=== PATIENT | male | born 1965 | race African-American/Black ===

== ENCOUNTER 2017-04-02 02:59 | Emergency (ER) | payer OTHER ==
[~2017-04-02] VITALS: Ht 180.3 cm; Wt 59.0 kg
[2017-04-02 03:28] VITALS: BP 125/90
[2017-04-02] MEDS ORDERED: IBUP-1007 PO (03:51)
[2017-04-02] MEDS ORDERED: SULF1TAB24 PO (03:51)
--- NOTE | 2017-04-02 03:51 | PHYS DOC ---
Past Medical History Past Medical History: No Pertinent History Past Surgical History: Other Additional Past Surgical Histo: R hand surgery Alcohol Use: Rarely Drug Use: None Adult General Chief Complaint Chief Complaint: ABSCESS HPI HPI Patient is a 51 year old [f__sex] who presents with [] Review of Systems Review of Systems Constitutional: Denies fever or chills [] Eyes: Denies change in visual acuity, redness, or eye pain [] HENT: Denies nasal congestion or sore throat [] Respiratory: Denies cough or shortness of breath [] Cardiovascular: No additional information not addressed in HPI [] GI: Denies abdominal pain, nausea, vomiting, bloody stools or diarrhea [] : Denies dysuria or hematuria [] Musculoskeletal: Denies back pain or joint pain [] Integument: Denies rash or skin lesions [] Neurologic: Denies headache, focal weakness or sensory changes [] Endocrine: Denies polyuria or polydipsia [] Allergies Allergies Allergies Coded Allergies Type Severity Reaction Last Updated Verified No Known Drug Allergies 09/13/14 No Physical Exam Physical Exam Constitutional: Well developed, well nourished, no acute distress, non-toxic appearance. [] HENT: Normocephalic, atraumatic, bilateral external ears normal, oropharynx moist, no oral exudates, nose normal. [] Eyes: PERRLA, EOMI, conjunctiva normal, no discharge. [] Neck: Normal range of motion, no tenderness, supple, no stridor. [] Cardiovascular:Heart rate regular rhythm, no murmur [] Lungs & Thorax: Bilateral breath sounds clear to auscultation [] Abdomen: Bowel sounds normal, soft, no tenderness, no masses, no pulsatile masses. [] Skin: Warm, dry, no erythema, no rash. [] Back: No tenderness, no CVA tenderness. [] Extremities: No tenderness, no cyanosis, no clubbing, ROM intact, no edema. [] Neurologic: Alert and oriented X 3, normal motor function, normal sensory function, no focal deficits noted. [] Psychologic: Affect normal, judgement normal, mood normal. [] EKG EKG [] Radiology/Procedures Radiology/Procedures [] Course & Med Decision Making Course & Med Decision Making Pertinent Labs and Imaging studies reviewed. (See chart for details) [] Dragon Disclaimer Dragon Disclaimer This electronic medical record was generated, in whole or in part, using a voice recognition dictation system. Departure Departure Impression: Primary Impression: Folliculitis Disposition: 01 HOME, SELF-CARE Condition: IMPROVED Referrals: HECTOR GARCIA (PCP) Patient Instructions: Folliculitis Scripts Ibuprofen (IBUPROFEN) 600 Mg Tablet 600 MG PO PRN Q6HRS Y for PAIN, #20 TAB Prov: MANNY EVANGELISTA MD 04/02/17 Sulfamethoxazole/Trimethoprim (BACTRIM DS TABLET) 1 Each Tablet 2 TAB PO BID for 10 Days, TAB Prov: MANNY EVANGELISTA MD 04/02/17 MANNY EVANGELISTA MD Apr 02, 2017 03:51
[2017-04-02] MEDS ORDERED: IBUPROFEN 600 MG TABLET. PO ONE (04:00)
[2017-04-02] MEDS ORDERED: SMZ/TMP 800/160MG TABLET. PO ONE (04:00)
== END 2017-04-02 04:05 | disposition home or self-care (01) ==
LOC: ER 02:59
DX: L73.9 Follicular disorder, unspecified (principal)
CPT/HCPCS: 99283

== ENCOUNTER → 2019-04-12 | Outpatient (CLI) | payer OTHER ==
[2017-04-13 21:00] VITALS: BP 104/63
[~2019-04-12] MED LIST: IBUP-1007 PO; SULF1TAB24 PO
--- NOTE | 2019-04-12 12:36 | RAD ---
PROCEDURE: CHEST PA LATERAL CLINICAL INDICATION: Weight loss. Smoker. COMPARISON: None FINDINGS: No pneumothorax identified. Cardiac and mediastinal contours unremarkable. No pulmonary consolidation or acute airspace disease. No acute osseous abnormalities identified. IMPRESSION: No pulmonary consolidation or acute airspace disease. Electronically signed by: Dalton Mccoy DO (04/12/2019 12:33 PM) [facility]
== END | disposition home or self-care (01) ==
LOC: RAD 12:05
PROVIDERS: ATTEND Internal Medicine Gastroenterology
DX: R63.4 Abnormal weight loss (principal); F17.200 Nicotine dependence, unspecified, uncomplicated
CPT/HCPCS: 71046

== ENCOUNTER → 2019-05-18 | Day surgery (SDC) | payer OTHER ==
[~2019-05-18] MED LIST changes: +IV RINGERS,LACTATED 1000ML 1,000 ML IV SCH; +LIDOCAINE 2% PF 5 ML VIAL. ONE; +PROPOFOL 60 ML IV ONE
[2019-05-18 14:50] VITALS: BP 118/65
--- NOTE | 2019-05-22 15:07 | PATHOLOGY ---
[facility] Accession Number: [id number] . 01 Material submitted: . PART A: colon - SIGMOID POLYPECTOMY. Modifiers: sigmoid PART B: colon - TRANVERSE COLON POLYPECTOMY. Modifiers: transverse . 01 Clinical history: . Pre-OP DX: Weight loss/screening/reflux Post-OP DX: Non-erosive gastritis/pending . 02 Diagnosis: A. Colonic mucosa, sigmoid colon polypectomy: - Hyperplastic polyp with coagulation artifact. . B. Colonic mucosa, transverse colon polypectomy: - Hyperplastic polyp with coagulation artifact. . (JPM:meteorological aide; 05/22/2019) MBR 05/22/2019 1032 Local . 02 Comment: There are no adenomatous changes or evidence of malignancy. (JPM:meteorological aide; 05/22/2019) . 02 Electronically signed: . Jw Urena MD, Pathologist NPI- [id number] . 01 Gross description: . A. Received in formalin labeled "Ruff, Arpree, sigmoid polypectomy," are multiple segments of hardy soft tissue measuring 1.1 x 0.3 x 0.1 cm in aggregate dimensions. The specimen is filtered and entirely submitted in cassette A1. . B. Received in formalin labeled "Ruff, Arpree, transverse colon polyp," and additionally labeled on the requisition as "polypectomy," are multiple segments of hardy soft tissue admixed with vegetative material measuring 0.5 x 0.3 x 0.1 cm in aggregate dimensions. The specimen is filtered and entirely submitted in cassette B1. (TSD; 05/19/2019) TOB/TOB 05/19/2019 1729 Local . 02 Pathologist provided ICD-10: K63.5 . 02 CPT . 115079, 905112 Specimen Comment: A courtesy copy of this report has been sent to Specimen Comment: [phone], , . Specimen Comment: Report sent to ,DR GARCIA / DR TAVAREZ Performed at: 01 [facility] [address], [place] [id number] MD Ever Washburn MD Phone: [phone] Performed at: 02 [facility] [address] [place], [place] [id number] MD Jw Urena MD Phone: [phone]
== END ==
LOC: ENDOS 11:55
PROVIDERS: ATTEND Internal Medicine Gastroenterology
DX: K63.5 Polyp of colon (principal); K29.50 Unspecified chronic gastritis without bleeding; K57.30 Diverticulosis of large intestine without perforation or abscess without bleeding; K64.0 First degree hemorrhoids; F15.90 Other stimulant use, unspecified, uncomplicated; Z72.89 Other problems related to lifestyle
CPT/HCPCS: 43235; 45385; 88305; J2001; J2704

== ENCOUNTER 2019-06-19 16:44 | Emergency (ER) | payer OTHER ==
[~2019-06-19] VITALS: Ht 180.3 cm; Wt 59.9 kg
[~2019-06-19 16:44] MED LIST changes: -IV RINGERS,LACTATED 1000ML 1,000 ML IV SCH; -LIDOCAINE 2% PF 5 ML VIAL. ONE; -PROPOFOL 60 ML IV ONE
[2019-06-19 17:25] VITALS: BP 150/79
[2019-06-19 17:51] LABS: BILIRUBIN,URINE NEGATIVE (NEG); CLARITY,URINE CLOUDY; COLOR,URINE YELLOW; NITRITE,URINE NEGATIVE (NEG); PH,URINE 6.5; PROTEIN,URINE NEGATIVE (NEG-TRACE); UROBILINOGEN,URINE 0.2 mg/dL (0.2 mg/dL)
[2019-06-19 17:56] LABS: SQUAMOUS EPITHELIAL CELL,UR FEW /LPF
[2019-06-19 17:57] LABS: AMORPHOUS SEDIMENT,UR PRESENT /HPF; BACTERIA,URINE 0 /HPF (0-FEW); RBC,URINE 0 /HPF (0-2)
[2019-06-19] MEDS ORDERED: FLUT9.9S NS (18:05)
--- NOTE | 2019-06-19 18:05 | PHYS DOC ---
Past Medical History Past Medical History: No Pertinent History Past Surgical History: No Surgical History Additional Past Surgical Histo: R hand surgery Alcohol Use: Occasionally Drug Use: None Adult General Chief Complaint Chief Complaint: EARACHE/EAR PAIN HPI HPI Patient is a 53 year old AA male, who presents to the emergency department with complaints of left ear pain for the last for 5 days. He denies any bleeding from the air he reports some decreased hearing and some yellow discolored drainage from the ear a few days ago. Patient denies any injury. He also reports increased urinary frequency, he denies any irregular penile discharge, abdominal pain, low back pain, hematuria, or incontinence. She denies any fever, sore throat, cough, nasal congestion, nausea, vomiting, or diarrhea. He currently rates pain a 5 out of 10 on the pain scale. He denies any alleviating or exacerbating factors. Review of Systems Review of Systems Constitutional: Denies fever or chills [] Eyes: Denies redness, or eye pain [] HENT: Denies nasal congestion or sore throat; see history of present illness [] Respiratory: Denies cough or shortness of breath [] Cardiovascular: No additional information not addressed in HPI [] GI: Denies abdominal pain, nausea, vomiting, or diarrhea [] : Denies dysuria or hematuria; see history of present illness Musculoskeletal: Denies back pain or joint pain [] Integument: Denies rash or skin lesions [] Neurologic: Denies headache Complete systems were reviewed and found to be within normal limits, except as documented in this note. Allergies Allergies Allergies Coded Allergies Type Severity Reaction Last Updated Verified No Known Drug Allergies 05/18/19 No Physical Exam Physical Exam Constitutional: Well developed, well nourished, no acute distress, non-toxic appearance. [] HENT: Normocephalic, atraumatic, bilateral external ears normal, bilateral TMs normal, oropharynx moist, cobblestone appearance of posterior pharynx, no oral exudates, nasal turbinates are edematous and erythematous bilaterally Eyes: PERRLA, EOMI, conjunctiva normal, no discharge. [] Neck: Normal range of motion, no tenderness, supple, no stridor. [] Cardiovascular:Heart rate regular rhythm, no murmur [] Lungs & Thorax: Bilateral breath sounds clear to auscultation [] Abdomen: Bowel sounds normal, soft, no tenderness, no masses, no pulsatile billy s. [] Skin: Warm, dry, no erythema, no rash. [] Back: No CVA tenderness. [] Extremities: No cyanosis, ROM intact, no edema. [] Neurologic: Alert and oriented X 3, no focal deficits noted. [] Psychologic: Affect normal, judgement normal, mood normal. [] Current Patient Data Vital Signs Vital Signs Date Time Temp Pulse Resp B/P (MAP) Pulse Ox O2 Delivery O2 Flow Rate FiO2 06/19/19 17:25 98.7 78 18 150/79 (102) 97 Room Air 98.7 Lab Values Laboratory Tests Test 06/19/19 17:40 Urine Collection Type Unknown Urine Color Yellow Urine Clarity Cloudy Urine pH 6.5 Urine Specific [place] 1.015 Urine Protein Negative mg/dL (NEG-TRACE) Urine Glucose (UA) Negative mg/dL (NEG) Urine Ketones (Stick) Negative mg/dL (NEG) Urine Blood Negative (NEG) Urine Nitrite Negative (NEG) Urine Bilirubin Negative (NEG) Urine Urobilinogen Dipstick 0.2 mg/dL (0.2 mg/dL) Urine Leukocyte Esterase Trace (NEG) Urine RBC 0 /HPF (0-2) Urine WBC 1-4 /HPF (0-4) Urine Squamous Epithelial Cells Few /LPF Urine Amorphous Sediment Present /HPF Urine Bacteria 0 /HPF (0-FEW) EKG EKG [] Radiology/Procedures Radiology/Procedures [] Course & Med Decision Making Course & Med Decision Making Pertinent Labs and Imaging studies reviewed. (See chart for details) [] Dragon Disclaimer Dragon Disclaimer This electronic medical record was generated, in whole or in part, using a voice recognition dictation system. Departure Departure Impression: Primary Impression: Left ear pain Additional Impression: Allergic rhinitis Disposition: HOME, SELF-CARE Condition: STABLE Referrals: ALBERT TAVAREZ MD (PCP) Patient Instructions: Allergic Rhinitis, Otalgia-Brief Additional Instructions: Fill the prescription(s) and use as directed. You may take Tylenol or ibuprofen as needed for pain/fever. Increase clear fluids. Avoid triggers such as smoke, fragrance, dust, and pollen. Follow-up with your primary care doctor if symptoms persist, return to the ER if symptoms worsen. Scripts Fluticasone Propionate (Flonase Allergy Relief) 9.9 Ml [place].susp 2 SPRAYS NS DAILY for 30 Days, #1 BOTTLE 0 Refills Prov: SILVIA GOLD CARTOGRAPHIC ENGINEER 06/19/19 Problem Qualifiers Additional Impression: Allergic rhinitis Allergic rhinitis trigger: unspecified Allergic rhinitis seasonality: non- seasonal Qualified Codes: J30.89 - Other allergic rhinitis SILVIA GOLD CARTOGRAPHIC ENGINEER Jun 19, 2019 18:05
== END 2019-06-19 18:20 | disposition home or self-care (01) ==
LOC: ER 16:44
DX: H92.02 Otalgia, left ear (principal); J30.89 Other allergic rhinitis
CPT/HCPCS: 81001; 87086; 99284

== ENCOUNTER → 2019-07-31 | Outpatient (CLI) | payer OTHER ==
[~2019-07-31] MED LIST changes: +FLUT9.9S NS; +IOHEXOL 240 MG/ML 50ML VIAL. IV ONE; +IOHEXOL 300 MG/ML 100ML VIAL. IV ONE
--- NOTE | 2019-07-31 15:08 | RAD ---
Examination: CT ABD PELV W/ORAL IV CONTRAST History: Weight loss, abdominal pain Comparison/Correlation: None Findings: Axial images of the abdomen and pelvis were obtained following IV and oral contrast. Sagittal and coronal reformatted images were provided. There is a 0.27 cm diameter nodule seen on image 1 of series 2 at the posterior right pleura. It may have free flowing fluid for purposes of this exam. Liver, pancreas, adrenal glands, spleen, and gallbladder fossa are unremarkable. Kidneys are unremarkable. Limited mesenteric fat is noted. No bowel obstruction or inflammatory findings. Appendix appears to be present and unremarkable with retrocecal course. No enlarged abdominal or pelvic lymph nodes. Urinary bladder is unremarkable. L5-S1 disc space narrowing with vacuum phenomenon and concentric disc bulge is present. No abdominal aortic aneurysm. Atherosclerotic calcification involving the abdominal aorta and iliac arteries noted consistent with age. Impression: No mass or enlarged lymph nodes. No inflammatory processes. Nodule at the right posterior lung base is resolving size but noncalcified and have a fully included on this exam. Correlate with risk factors in determining interval follow up further evaluation with CT chest with contrast to further characterize and assess stability. PQRS Compliance Statement: One or more of the following individualized dose reduction techniques were utilized for this examination: 1. Automated exposure control 2. Adjustment of the mA and/or kV according to patient size 3. Use of iterative reconstruction technique Electronically signed by: Bryce Kraus MD (07/31/2019 3:05 PM) [facility]
== END | disposition home or self-care (01) ==
LOC: CT 12:50
PROVIDERS: ATTEND Internal Medicine Gastroenterology
DX: R91.1 Solitary pulmonary nodule (principal); I70.8 Atherosclerosis of other arteries; M51.26 Other intervertebral disc displacement, lumbar region; M48.07 Spinal stenosis, lumbosacral region
CPT/HCPCS: 74177; Q9966; Q9967

== ENCOUNTER 2019-11-02 20:24 | Emergency (ER) | payer OTHER ==
[~2019-11-02] VITALS: Ht 180.3 cm; Wt 59.0 kg
[~2019-11-02 20:24] MED LIST changes: -IOHEXOL 240 MG/ML 50ML VIAL. IV ONE; -IOHEXOL 300 MG/ML 100ML VIAL. IV ONE
[2019-11-02 21:10] VITALS: BP 121/68
--- NOTE | 2019-11-02 21:38 | PHYS DOC ---
Past Medical History Past Medical History: No Pertinent History (ALBERT MANNING APRN) Past Surgical History: No Surgical History Additional Past Surgical Histo: R hand surgery (ALBERT MANNING APRN) Smoking Status: Current Every Day Smoker Alcohol Use: Occasionally Drug Use: None (ALBERT MANNING APRN) Attending Signature I have participated in the care of this patient and I have reviewed and agree with all pertinent clinical information above including history, exam, and recommendations. (ESTRELLA FERNANDEZ MD) Adult General Chief Complaint Chief Complaint: MUSCLE SPASM/CRAMP HPI HPI Patient is a 54 year old male who presents with muscle cramps that intermittently beginning last 2 weeks. The patient states over that period of time he is not been eating or drinking very much because his food tastes weird and he takes an acid taste in his mouth. He says that he is lost 30 pounds over the last several weeks. Denies any additional symptoms. Complete ROS were reviewed and found to be within normal limits, except as documented in the HPI (ALBERT MANNING APRN) Current Medications Current Medications Current Medications Medications (Trade) Dose Ordered Sig/Frida Start Time Stop Time Status Last Admin Dose Admin Sodium Chloride 1,000 ml @ 1,000 mls/hr 1X ONCE 11/02/19 22:00 11/02/19 22:49 DC 11/02/19 21:42 1,000 MLS/HR (ESTRELLA FERNANDEZ MD) Allergies Allergies Allergies Coded Allergies Type Severity Reaction Last Updated Verified No Known Drug Allergies 05/18/19 No (ESTRELLA FERNANDEZ MD) Physical Exam Physical Exam Constitutional: Well developed, well nourished, no acute distress, non-toxic appearance. [] HENT: Normocephalic, atraumatic, bilateral external ears normal, oropharynx moist, no oral exudates, nose normal. [] Eyes: PERRLA, EOMI, conjunctiva normal, no discharge. [] Neck: Normal range of motion, no tenderness, supple, no stridor. [] Cardiovascular:Heart rate regular rhythm, no murmur [] Lungs & Thorax: Bilateral breath sounds clear to auscultation [] Abdomen: Bowel sounds normal, soft, no tenderness, no masses, no pulsatile masses. [] Neurologic: Alert and oriented X 3, normal motor function, normal sensory function, no focal deficits noted. [] Psychologic: Affect normal, judgement normal, mood normal. [] (ALBERT MANNING APRN) Current Patient Data Vital Signs Vital Signs Date Time Temp Pulse Resp B/P (MAP) Pulse Ox O2 Delivery O2 Flow Rate FiO2 11/02/19 21:10 98.3 87 18 121/68 (85) 99 Room Air 98.3 (ESTRELLA FERNANDEZ MD) Lab Values Laboratory Tests Test 11/02/19 21:37 White Blood Count 5.6 x10^3/uL (4.0-11.0) Red Blood Count 3.96 x10^6/uL (4.30-5.70) L Hemoglobin 13.1 g/dL (13.0-17.5) Hematocrit 38.4 % (39.0-53.0) L Mean Corpuscular Volume 97 fL (79-100) Mean Corpuscular Hemoglobin 33 pg (25-35) Mean Corpuscular Hemoglobin Concent 34 g/dL (31-37) Red Cell Distribution Width 13.2 % (11.5-14.5) Platelet Count 162 x10^3/uL (140-400) Neutrophils (%) (Auto) 44 % (31-73) Lymphocytes (%) (Auto) 44 % (24-48) Monocytes (%) (Auto) 9 % (0-9) Eosinophils (%) (Auto) 2 % (0-3) Basophils (%) (Auto) 1 % (0-3) Neutrophils # (Auto) 2.5 x10^3/uL (1.8-7.7) Lymphocytes # (Auto) 2.5 x10^3/uL (1.0-4.8) Monocytes # (Auto) 0.5 x10^3/uL (0.0-1.1) Eosinophils # (Auto) 0.1 x10^3/uL (0.0-0.7) Basophils # (Auto) 0.1 x10^3/uL (0.0-0.2) Sodium Level 140 mmol/L (136-145) Potassium Level 4.0 mmol/L (3.5-5.1) Chloride Level 105 mmol/L (98-107) Carbon Dioxide Level 30 mmol/L (21-32) Anion Gap 5 (6-14) L Blood Urea Nitrogen 13 mg/dL (8-26) Creatinine 0.9 mg/dL (0.7-1.3) Estimated GFR (Cockcroft-Gault) 106.8 BUN/Creatinine Ratio 14 (6-20) Glucose Level 91 mg/dL (70-99) Calcium Level 8.8 mg/dL (8.5-10.1) Magnesium Level 1.7 mg/dL (1.8-2.4) L Total Bilirubin 0.2 mg/dL (0.2-1.0) Aspartate Amino Transferase (AST) 24 U/L (15-37) Alanine Aminotransferase (ALT) 21 U/L (16-63) Alkaline Phosphatase 81 U/L (46-116) Total Protein 6.4 g/dL (6.4-8.2) Albumin 3.4 g/dL (3.4-5.0) Albumin/Globulin Ratio 1.1 (1.0-1.7) Lipase 216 U/L (73-393) Laboratory Tests 11/02/19 21:37 Laboratory Tests 11/02/19 21:37 (ESTRELLA FERNANDEZ MD) Lab Values Laboratory Tests Test 11/02/19 21:37 White Blood Count 5.6 x10^3/uL (4.0-11.0) Red Blood Count 3.96 x10^6/uL (4.30-5.70) L Hemoglobin 13.1 g/dL (13.0-17.5) Hematocrit 38.4 % (39.0-53.0) L Mean Corpuscular Volume 97 fL (79-100) Mean Corpuscular Hemoglobin 33 pg (25-35) Mean Corpuscular Hemoglobin Concent 34 g/dL (31-37) Red Cell Distribution Width 13.2 % (11.5-14.5) Platelet Count 162 x10^3/uL (140-400) Neutrophils (%) (Auto) 44 % (31-73) Lymphocytes (%) (Auto) 44 % (24-48) Monocytes (%) (Auto) 9 % (0-9) Eosinophils (%) (Auto) 2 % (0-3) Basophils (%) (Auto) 1 % (0-3) Neutrophils # (Auto) 2.5 x10^3/uL (1.8-7.7) Lymphocytes # (Auto) 2.5 x10^3/uL (1.0-4.8) Monocytes # (Auto) 0.5 x10^3/uL (0.0-1.1) Eosinophils # (Auto) 0.1 x10^3/uL (0.0-0.7) Basophils # (Auto) 0.1 x10^3/uL (0.0-0.2) Sodium Level 140 mmol/L (136-145) Potassium Level 4.0 mmol/L (3.5-5.1) Chloride Level 105 mmol/L (98-107) Carbon Dioxide Level 30 mmol/L (21-32) Anion Gap 5 (6-14) L Blood Urea Nitrogen 13 mg/dL (8-26) Creatinine 0.9 mg/dL (0.7-1.3) Estimated GFR (Cockcroft-Gault) 106.8 BUN/Creatinine Ratio 14 (6-20) Glucose Level 91 mg/dL (70-99) Calcium Level 8.8 mg/dL (8.5-10.1) Magnesium Level 1.7 mg/dL (1.8-2.4) L Total Bilirubin 0.2 mg/dL (0.2-1.0) Aspartate Amino Transferase (AST) 24 U/L (15-37) Alanine Aminotransferase (ALT) 21 U/L (16-63) Alkaline Phosphatase 81 U/L (46-116) Total Protein 6.4 g/dL (6.4-8.2) Albumin 3.4 g/dL (3.4-5.0) Albumin/Globulin Ratio 1.1 (1.0-1.7) Lipase 216 U/L (73-393) Laboratory Tests 11/02/19 21:37 Laboratory Tests 11/02/19 21:37 (ALBERT MANNING APRN) EKG EKG [] (ALBERT MANNING APRN) Radiology/Procedures Radiology/Procedures [] (ALBERT MANNING APRN) Course & Med Decision Making Course & Med Decision Making Pertinent Labs and Imaging studies reviewed. (See chart for details) We will check labs, and give fluids. Labs are unremarkable. Will g give prescription for muscle relaxers, and will give prescription for Protonix as he has been having an acid taste in the back of his mouth. We will have him follow-up with his primary care doctor. (ALBERT MANNING APRN) Dragon Disclaimer Dragon Disclaimer This electronic medical record was generated, in whole or in part, using a voice recognition dictation system. (ALBERT MANNING APRN) Departure Departure Impression: Primary Impression: GERD (gastroesophageal reflux disease) Additional Impression: Muscle cramping Disposition: 01 HOME, SELF-CARE Condition: STABLE Referrals: ALBERT TAVAREZ MD (PCP) Patient Instructions: Diet for Gastroesophageal Reflux Disease, Adult, Muscle Cramps Additional Instructions: Thank you for visiting [facility]. We appreciate you trusting us with your care. If any additional problems come up don't hesitate to return to visit us. Please follow up with your primary care provider so they can plan additional care if needed and know about the problem that you had. If symptoms worsen come back to the Emergency Department. Any concerning symptoms that start such as chest pain, shortness of air, weakness or numbness on one side of the body, running high fevers or any other concerning symptoms return to the ER. Please fill your medications at any pharmacy and follow the prescription instructions. Scripts Orphenadrine Citrate (ORPHENADRINE CITRATE) 100 Mg Tablet.er 100 MG PO BID PRN for MUSCLE SPASMS for 5 Days, #10 TAB.SR Prov: ALBERT MANNING APRN 11/02/19 Pantoprazole Sodium (PROTONIX ) 40 Mg Tablet.dr 40 MG PO DAILYAC for GERD for 30 Days, #30 TAB Prov: ALBERT MANNING APRN 11/02/19 Problem Qualifiers Primary Impression: GERD (gastroesophageal reflux disease) Esophagitis presence: esophagitis presence not specified Qualified Codes: K21.9 - Gastro-esophageal reflux disease without esophagitis ALBERT MANNING APRN Nov 02, 2019 21:38 ESTRELLA FERNANDEZ MD Nov 03, 2019 03:09
[2019-11-02 21:44] LABS: BASO # 0.1 x10^3/uL (0.0-0.2); BASO % 1 % (0-3); EOS # 0.1 x10^3/uL (0.0-0.7); EOS % 2 % (0-3); HEMATOCRIT 38.4 % (39.0-53.0); HEMOGLOBIN 13.1 g/dL (13.0-17.5); LYMPH # 2.5 x10^3/uL (1.0-4.8); LYMPH % 44 % (24-48); MEAN CORPUSCULAR HEMOGLOBIN 33 pg (25-35); MEAN CORPUSCULAR HGB CONC 34 g/dL (31-37); MEAN CORPUSCULAR VOLUME 97 fL (79-100); MONO # 0.5 x10^3/uL (0.0-1.1); MONO % 9 % (0-9); NEUT # 2.5 x10^3/uL (1.8-7.7); NEUT % 44 % (31-73); PLATELET COUNT 162 x10^3/uL (140-400); RED BLOOD COUNT 3.96 x10^6/uL (4.30-5.70); RED CELL DISTRIBUTION WIDTH 13.2 % (11.5-14.5); WHITE BLOOD COUNT 5.6 x10^3/uL (4.0-11.0)
[2019-11-02 21:51] LABS: CALCIUM 8.8 mg/dL (8.5-10.1); CREATININE 0.9 mg/dL (0.7-1.3); GFR 106.8
[2019-11-02 21:57] LABS: ALBUMIN 3.4 g/dL (3.4-5.0); ALBUMIN/GLOBULIN RATIO 1.1 (1.0-1.7); MAGNESIUM 1.7 mg/dL (1.8-2.4); TOTAL BILIRUBIN 0.2 mg/dL (0.2-1.0); TOTAL PROTEIN 6.4 g/dL (6.4-8.2)
[2019-11-02] MEDS ORDERED: IV NORMAL SALINE 1000ML BAG 1,000 ML IV ONE (22:00)
[2019-11-02] MEDS ORDERED: ORPH100T PO (22:25)
[2019-11-02] MEDS ORDERED: PANT40TA77 PO (22:25)
== END 2019-11-02 22:45 | disposition home or self-care (01) ==
LOC: ER 20:24
DX: K21.9 Gastro-esophageal reflux disease without esophagitis (principal); R25.2 Cramp and spasm; F17.200 Nicotine dependence, unspecified, uncomplicated
CPT/HCPCS: 36415; 80053; 83690; 83735; 85025; 99283; J7030

== ENCOUNTER 2020-04-07 19:13 | Emergency (ER) | payer OTHER ==
[~2020-04-07] VITALS: Ht 180.3 cm; Wt 54.0 kg
[~2020-04-07 19:13] MED LIST changes: +ORPH100T PO; +PANT40TA77 PO
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
[2020-04-07 20:13] LABS: BASO % 1 % (0-3); EOS # 0.1 x10^3/uL (0.0-0.7); EOS % 1 % (0-3); HEMOGLOBIN 11.5 g/dL (13.0-17.5); LYMPH # 2.1 x10^3/uL (1.0-4.8); LYMPH % 29 % (24-48); MEAN CORPUSCULAR HEMOGLOBIN 33 pg (25-35); MEAN CORPUSCULAR HGB CONC 35 g/dL (31-37); MEAN CORPUSCULAR VOLUME 94 fL (79-100); MONO # 0.6 x10^3/uL (0.0-1.1); MONO % 8 % (0-9); NEUT # 4.3 x10^3/uL (1.8-7.7); NEUT % 61 % (31-73); PLATELET COUNT 239 x10^3/uL (140-400); RED CELL DISTRIBUTION WIDTH 12.7 % (11.5-14.5); WHITE BLOOD COUNT 7.1 x10^3/uL (4.0-11.0)
[2020-04-07] MEDS ORDERED: IV NORMAL SALINE 500ML BAG 500 ML IV ONE (20:15)
[2020-04-07] MEDS ORDERED: DEXAMETHASONE SOD PHOS 20 MG/5 ML VIAL. IVP ONE (20:15)
[2020-04-07] MEDS ORDERED: KETOROLAC 30 MG/ML VIAL. IVP ONE (20:15)
[2020-04-07] MEDS ORDERED: METOCLOPRAMIDE HCL 10 MG/2 ML VIAL. IVP ONE (20:15)
[2020-04-07] MEDS ORDERED: diphenhydrAMINE 50 MG/ML VIAL IVP ONE (20:15)
[2020-04-07] MEDS ORDERED: MAGNESIUM SULFATE 1GM 100 ML IV ONE (20:15)
[2020-04-07 20:23] LABS: CREATININE 0.7 mg/dL (0.7-1.3); GFR 142.7; POTASSIUM 4.3 mmol/L (3.5-5.1)
[2020-04-07 20:29] LABS: ALBUMIN 3.3 g/dL (3.4-5.0); TOTAL BILIRUBIN 0.2 mg/dL (0.2-1.0); TOTAL PROTEIN 6.5 g/dL (6.4-8.2)
[2020-04-07 20:36] LABS: PROTHROMBIN TIME PATIENT 13.8 SEC (11.7-14.0)
[2020-04-07] MEDS ORDERED: POLY119P4 PO (21:44)
[2020-04-07] MEDS ORDERED: HYDR25SU18 RC (21:44)
[2020-04-07 21:47] LABS: BILIRUBIN,URINE NEGATIVE (NEG); CLARITY,URINE CLEAR; COLOR,URINE YELLOW; NITRITE,URINE NEGATIVE (NEG); PH,URINE 6.5 (<5.0-8.0); PROTEIN,URINE NEGATIVE (NEG-TRACE); UROBILINOGEN,URINE 0.2 mg/dL (0.2 mg/dL)
[2020-04-07 21:53] LABS: BACTERIA,URINE 0 /HPF (0-FEW); RBC,URINE 0 /HPF (0-2); SQUAMOUS EPITHELIAL CELL,UR OCC /LPF; WBC,URINE OCC /HPF (0-4)
[2020-04-07 22:10] VITALS: BP 101/63
--- NOTE | 2020-04-09 08:38 | EKG ---
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
== END 2020-04-07 22:14 | disposition home or self-care (01) ==
LOC: ER 19:13
DX: K64.9 Unspecified hemorrhoids (principal); K59.01 Slow transit constipation; G43.119 Migraine with aura, intractable, without status migrainosus; R07.89 Other chest pain; F17.200 Nicotine dependence, unspecified, uncomplicated; Z98.890 Other specified postprocedural states
CPT/HCPCS: 36415; 80053; 81001; 84484; 85025; 85610; 85730; 86850; 86900; 86901; 87086; 93005; 96365; 96375; 99285; J1100; J1200; J1885; J2765; J3475; J7040

== ENCOUNTER 2020-05-30 21:17 | Emergency (ER) | payer OTHER ==
[~2020-05-30] VITALS: Ht 177.8 cm; Wt 61.3 kg
[~2020-05-30 21:17] MED LIST changes: +HYDR25SU18 RC; +POLY119P4 PO
[2020-05-30 21:47] LABS: BASO # 0.1 x10^3/uL (0.0-0.2); BASO % 1 % (0-3); EOS # 0.1 x10^3/uL (0.0-0.7); EOS % 1 % (0-3); HEMATOCRIT 31.9 % (39.0-53.0); HEMOGLOBIN 10.8 g/dL (13.0-17.5); LYMPH # 1.7 x10^3/uL (1.0-4.8); LYMPH % 23 % (24-48); MEAN CORPUSCULAR HEMOGLOBIN 31 pg (25-35); MEAN CORPUSCULAR HGB CONC 34 g/dL (31-37); MEAN CORPUSCULAR VOLUME 92 fL (79-100); MONO # 1.1 x10^3/uL (0.0-1.1); MONO % 15 % (0-9); NEUT # 4.5 x10^3/uL (1.8-7.7); NEUT % 61 % (31-73); PLATELET COUNT 366 x10^3/uL (140-400); RED BLOOD COUNT 3.48 x10^6/uL (4.30-5.70); RED CELL DISTRIBUTION WIDTH 13.1 % (11.5-14.5); WHITE BLOOD COUNT 7.5 x10^3/uL (4.0-11.0)
--- NOTE | 2020-05-30 22:00 | RAD ---
Exam: Chest one view INDICATION: Chest pain TECHNIQUE: Frontal view of the chest Comparisons: 04/12/2019 FINDINGS: The cardiomediastinal silhouette and pulmonary vessels are within normal limits. The lung and pleural spaces are clear. IMPRESSION: No acute cardiopulmonary process. Electronically signed by: Diogenes Calhoun MD (05/30/2020 9:58 PM) DENG
[2020-05-30 22:05] LABS: CALCIUM 8.7 mg/dL (8.5-10.1); CREATININE 0.7 mg/dL (0.7-1.3); GFR 142.7; POTASSIUM 4.6 mmol/L (3.5-5.1)
[2020-05-30 22:11] LABS: ALBUMIN 2.9 g/dL (3.4-5.0); ALBUMIN/GLOBULIN RATIO 0.7 (1.0-1.7); TOTAL BILIRUBIN 0.8 mg/dL (0.2-1.0); TOTAL PROTEIN 7.3 g/dL (6.4-8.2)
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
[2020-05-30] MEDS ORDERED: CONTRAST GIVEN. MC PRN (23:15)
[2020-05-30] MEDS ORDERED: IOHEXOL 350 MG/ML 100 ML VIAL. IV ONE (23:30)
--- NOTE | 2020-05-30 23:52 | RAD ---
CT head without contrast PQRS statement: CT scans at this facility use dose reduction including either automated exposure control, iterative reconstructions, and /or weight based radiation dosing via mA and kV modification when appropriate to reduce radiation dose to as low as reasonably achievable. HISTORY: Headache. FINDINGS: No intracranial hemorrhage, mass, hydrocephalus, extra-axial fluid collections or infarction. No acute ischemic change. Orbits, mastoids and bones are unremarkable. IMPRESSION: Normal exam. Electronically signed by: Roberto Gomes MD (05/30/2020 11:49 PM) [facility]
--- NOTE | 2020-05-30 23:58 | RAD ---
CT angiography chest with contrast PQRS statement: CT scans at this facility use dose reduction including either automated exposure control, iterative reconstructions, and /or weight based radiation dosing via mA and kV modification when appropriate to reduce radiation dose to as low as reasonably achievable. HISTORY: Chest pain, elevated d-dimer. TECHNIQUE: CT imaging the chest with 3-D MIP reconstructions of the pulmonary arteries with 100 mL Omnipaque 350 intravenous contrast. FINDINGS: There are masses of the liver with areas of mild hypervascular contrast enhancement largest at the posterior hepatic lobe extending outside the [id number], and hepatomegaly.. This is new from abdomen imaging July 2019. There is nearly completely absence of contrast density in the pulmonary arteries with all the contrast within the right heart chambers, aorta and left heart chambers limiting assessment for pulmonary artery emboli, likely occurred from a patient Valsalva during contrast injection. This does not allow assessment for pulmonary artery emboli. Heart size normal. Small volume of anterior pericardial fluid. Aorta and esophagus are unremarkable. No enlarged adenopathy in the chest. Pulmonary emphysema. 3 mm nodule minor fissure image 82. 4 mm nodule right major fissure image 77. Ossified granulomas in the chest. 5 mm nodule left lower lobe image 71. No pleural effusions. Bones unremarkable. IMPRESSION: 1. Very limited contrast density within the pulmonary arteries not allowing assessment for pulmonary artery emboli. If there is clinical suspicion of pulmonary emboli, consider follow-up CT angiographic imaging versus further assessment with nuclear medicine VQ imaging. See above. 2. Numerous liver masses new from abdominal imaging in 2019, concerning for metastatic disease or multifocal liver malignancy. 3. Pulmonary nodules largest measuring 5 mm. Electronically signed by: Roberto Gomes MD (05/30/2020 11:55 PM) [facility]
[2020-05-31 00:30] VITALS: BP 112/74
[2020-05-31 01:07] LABS: BARBITURATES NEG (NEG); BENZODIAZEPINES NEG (NEG); CANNABINOIDS NEG (NEG); COCAINE POS (NEG); METHADONE NEG (NEG); OPIATES NEG (NEG); PHENCYCLIDINE NEG (NEG)
[2020-05-31 01:12] LABS: AMPHETAMINE/METHAMPHETAMINE NEG (NEG)
--- NOTE | 2020-05-31 01:13 | RAD ---
Bilateral lower extremity venous duplex Doppler ultrasound HISTORY: Pain. History of cancer FINDINGS: No DVT evident by grayscale sonography with compressibility, patent color Doppler blood flow and augmentation of blood flow of the common femoral veins, profunda femoral veins, superficial femoral veins and popliteal veins. No DVT evident with patent color Doppler blood flow the posterior tibial peroneal veins in the calves. The right superficial femoral vein at the mid thigh demonstrates flow formation and slight blood flow without thrombosis. IMPRESSION: Negative bilateral legs for DVT. 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 Electronically signed by: Roberto Gomes MD (05/31/2020 1:10 AM) [facility]
--- NOTE | 2020-05-31 01:37 | RAD ---
CT abdomen and pelvis without contrast PQRS statement: CT scans at this facility use dose reduction including either automated exposure control, iterative reconstructions, and /or weight based radiation dosing via mA and kV modification when appropriate to reduce radiation dose to as low as reasonably achievable. HISTORY: Liver masses, malignancy. COMPARISON: CT abdomen and pelvis July 31, 2019. Abdomen findings: Absence of contrast limits assessment of solid organ pathology including masses. 5 mm left lower lobe nodule as described on recent CT chest. Lumbar disc bulges and disc osteophytes. Excreted contrast within the kidneys, ureters and bladder from recent CT chest with contrast study. Several indistinctly liver masses are present largest at the right hepatic lobe which demonstrates some central absence of contrast with a thick peripheral irregular rind of mild hypervascular contrast enhancement the mass measuring approximately 6 cm in diameter, with other masses which demonstrate heterogeneous areas of contrast enhancement throughout the liver. There is hepatomegaly which is also new from prior imaging possibly enlarged in part by these liver masses. Kidneys, pancreas, adrenal glands unremarkable. Gallbladder not visualized could be absent or collapsed. Spleen is small, stable. The liver enlargement compresses the upper GI tract. Appendix is negative. Moderate volume of stool. No bowel obstruction or obvious inflammatory change. Calcified plaque aorta and iliac arteries. 2 cm fatty umbilical abdominal wall hernia. Pelvis findings: Dense contrast within the bladder. Rectum, prostate and bones are unremarkable. IMPRESSION: Hepatomegaly and numerous liver masses concerning for metastatic disease versus multifocal high-grade hepatocellular carcinoma. Electronically signed by: Roberto Gomes MD (05/31/2020 1:34 AM) [facility]
--- NOTE | 2020-05-31 07:30 | EKG ---
[facility] [address] [place] [address] Test Date: 2020-05-30 Test Time: 21:27:13 Pat Name: SANJUANITA ELKINS Department: Room: Gender: M Remote [employer]: : 1965 Requested By: JENS MARTINEZ Order Number: [id number] Reading MD: Measurements Intervals [place] Rate: 91 P: 75 UT: 160 QRS: -62 QRSD: 90 T: 69 QT: 322 QTc: 398 Interpretive Statements SINUS RHYTHM ABNORMAL LEFT AXIS DEVIATION LEFT ANTERIOR FASCICULAR BLOCK QRS(T) CONTOUR ABNORMALITY CONSISTENT WITH SEPTAL INFARCT PROBABLY OLD T ABNORMALITY IN HIGH LATERAL LEADS ABNORMAL ECG RI6.02 No previous ECG available for comparison
== END 2020-05-31 03:00 | disposition home or self-care (01) ==
LOC: ER 21:17 → UNDOADMIN 05-31 00:08 → 6 SOUTH 05-31 00:08 → ER 05-31 03:00
DX: R06.00 Dyspnea, unspecified (principal); Z20.828 Contact with and (suspected) exposure to other viral communicable diseases; R16.0 Hepatomegaly, not elsewhere classified; R06.02 Shortness of breath; R51.9 Headache, unspecified; R07.89 Other chest pain; R53.83 Other fatigue; R62.7 Adult failure to thrive; Z68.1 Body mass index [BMI] 19.9 or less, adult; F17.200 Nicotine dependence, unspecified, uncomplicated; Z98.890 Other specified postprocedural states
CPT/HCPCS: 36415; 70450; 71045; 71275; 74176; 80053; 80307; 83690; 83735; 83880; 84484; 85025; 85379; 93005; 93970; 99285; Q9967